=== PATIENT | male | born 1955 | race Caucasian/White ===

== ENCOUNTER → 2016-09-28 | Outpatient (CLI) | payer MEDICARE ==
[~2016-09-28] MED LIST: ASPIRIN PO; NITROGLYCERIN; NITROGYLCERIN SUBLINGUAL
--- NOTE | ~2016-09-28 | CT57 ---
[facility] A [facility] RADIOLOGY TEXT RESULTS PATIENT: RITA LEÓN LOCATION: [facility] : 51 UNIT #: [id number] AGE: [address]: Vince Castellanos MD SEX: M ORDER DR: [id number] [facility] [place] [facility]. [place], [place] [address] [id number] O MR#: [id number] [facility] #: [id number] NAME: RITA LEÓN : 1955 SEX: M STUDY DATE/TIME: 09/28/2016 8:58 UNIT: [facility] ROOM: STUDY DESCRIPTION: CT Chest Wo Cont Attending Physician: Vince Castellanos M.D. Referring Physician: Vince Castellanos M.D. Ordering Physician: Vince Castellanos M.D. Primary Care Physician: Vince Castellanos M.D. MEDICAL IMAGING REPORT This report is preliminary unless electronic signature is present EXAM Chest CT without contrast HISTORY Followup of an indeterminate lung nodule. TECHNIQUE Axial images were obtained without contrast. This CT exam was performed with one or more of the following radiation dose reduction techniques: automatic exposure control, adjustment of mA and/or kV according to patient size, and iterative reconstruction. COMPARISON 05/07/2013 FINDINGS Chest images at mediastinal window show no enlarged mediastinal or hilar lymph nodes. There is no evidence of pleural or pericardial fluid. Lung window imaging shows linear scarring with mild volume loss at the left lung base. Nodular changes along the fissure on the left noted on the previous examination are less prominent on the current study and certainly have not progressed. No new or enlarging masses are seen since the previous scan. 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 No suspicious lesions are seen. IMPRESSION Benign changes at the left lung base with volume loss and scarring. Stable since 2012. No further followup needed. Dictated by... Anibal Alvarado M.D. [facility] A Service [facility] RADIOLOGY TEXT RESULTS PATIENT: RITA LEÓN LOCATION: [facility] : 51 UNIT #: [id number] AGE: [address]: Vince Castellanos MD SEX: M ORDER DR: THIS IS AN ELECTRONICALLY VERIFIED REPORT Anibal Alvarado M.D. at 09/28/2016 11:23 AM Haily TD: 09/28/2016 10:54 JOB #: [id number] MEDICAL IMAGING REPORT Page 1 of 1 COPY
== END | disposition home or self-care (01) ==
LOC: CCAT 08:44
DX: R91.1 Solitary pulmonary nodule (principal); J98.4 Other disorders of lung
CPT/HCPCS: 71250